=== PATIENT | female | born 1960 | race Caucasian/White ===

== ENCOUNTER 2021-07-18 08:50 | Day surgery (SDC) | payer OTHER, SELFPAY ==
[2021-07-18 09:32] VITALS: BP 122/79; PULSE 73; RESP 16; TEMP 36.5; O2SAT 100; BMI 20.6
[2021-07-18] MEDS: Lactated Ringers 1,000 ML 15 ML IV (09:49)
--- NOTE | 2021-07-18 10:06 | HP.PCM_ITS ---
History and Physical Date of Admission: 07/18/21 Date of Service: 05/29/21 MR#:[id number]: SANDRA GUSTAFSON [facility] #:[id number] Provider:Dr. Antony Fuentes DOAge/Sex: 61/F Location:[facility]:Signed Intake Intake Visit Reasons: BILAT HANDS Allergies No Known Allergies Allergy (Verified 04/12/20 10:43) Medications enalapril maleate 20 mg PO DAILY 04/19/16 [History Confirmed 05/29/21] PFS Social History (Updated 07/22/20 @ 15:43 by HOMER Taylor) Smoking Status: Light Smoker (<10/day) HPI BILAT HANDS Details: Parts of this documentation were recorded by a scribe, this documentation accurately reflects the service provided and the decisions made by me, Dr. Antony Fuentes, 05/29/21 1032. SANDRA GUSTAFSON is a 61 year old F here today for BL thumb pain over A1 sena. She states that she has had left trigger thumb injections with Dr. Magallanes the last injection was 04/2020 and she states this was helpful until about 1 month ago. She has had 3 injections into the left thumb, she has now been having pain of the right thumb in a similar area. She states that her BL thumbs stick on her. She has pain over the thumb. She does have some mild CMC joint pain as well. She states that the right thumb is worse than the left. She states that she has been using derma freeze for the pain which is a topical rub. She does also have numbness and tingling and that her 1st through 4th fingers on both hands will be numb in the mornings however she states after she shakes out her hands the numbness goes away does not wake her up at night and she does not get any symptoms during the day. Denies an EMG, denies any bracing/splinting. Ortho Exam General General: Yes no acute distress Neurologic: Yes alert and Yes oriented x3 Psychologic: Yes reasonable and appropriate Right Wrist/Hand Skin/Wound: No Swelling, No Ecchymosis, Yes nail intact and Yes capillary refill normal Right Wrist: No Durken's Test, Bhupinder's Test, Tinel's, Phalen's or tender to palpate carpometacarpal joint WRIST: Tender to palpation over the A1 sena of the thumb which is hypertrophied there is palpable triggering. She is nontender over the CMC joint negative CMC grind intact sensation light touch no atrophy noted about the thenar eminence. Left Wrist/Hand Skin/Wound: No Swelling and No Ecchymosis A1 sena trigger: Yes Left Wrist: No Durken's Test, No Tinel's, No Phalen's, No CMC Grind and No tender to palpate carpometacarpal joint WRIST: Tender to palpation over the A1 sena of the thumb which is hypertrophied there is palpable triggering. She is nontender over the CMC joint negative CMC grind intact sensation light touch no atrophy noted about the thenar eminence. Office Procedures Ortho Injections Injections Yes Trigger Finger Injection Left Details: Obtained consent for injection. Under sterile conditions, injected the patient's right trigger thumb with 1/4cc bupivacaine, 1/4cc lidocaine and 1/2cc depomedrol. The patient tolerated the injection well without any noted complication. Patient should call our office if redness develops, pain worsens or if they have any concerns. Office Meds Depo-Medrol Performing Provider: Antony Fuentes DO Administered by: Antony Fuentes DO on 05/29/21 11:44 Dose Route Admin Location Lot Number Expiration Date NDC Manuf acturer 20 mg intra-articular right trigger thumb [id number] 01/10/22 6645-5586-01 [employer]ARMAC[employer]PFIZER Supplemental Info Supplemental Info: 05/29/2021 x-ray left hand CMC joint arthritis first moderate 05/29/2021 x-ray right hand mild CMC joint arthritis 05/29/21 10:58 am EDT - Antony Fuentes Coding Level of Care Code Off vis,est,level 4 Diagnoses Trigger thumb, right thumb M65.311 Trigger thumb, left thumb M65.312 Carpal tunnel syndrome, bilateral G56.03 CPT Codes replenishment specialist.trig (12060) Assessment and Plan Assessment and Plan (1) Trigger thumb, left thumb: Status: Acute (2) Trigger thumb, right thumb: Status: Acute (3) Carpal tunnel syndrome, bilateral: Status: Acute Orders: Orders: Ortho Injections Today M65.311 Plan - Dr. Antony Fuentes, DO: Obtained X-rays of patient's BL hands. Personally reviewed x-rays. There is no obvious fracture, dislocation, or lucency noted. 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 Her greatest complaint is the triggering of the BL thumbs which is a trigger thumb. Treatment options for this are do nothing or splinting of thumb at night or A1 sena injection or A1 sena surgical release. Educated that it is not recommended to have repeated injections of the A1 sena because this has lead to risk of tendon rupture. Educated that if she has the surgery she will have stitches for 2 weeks, then will have restrictions for an additional week then she can return to activity as tolerated. She wishes to proceed with right A1 sena injection of the thumb today. Educated that she is also having carpal tunnel symptoms. Treatment options for this would include night bracing/splinting and if the numbness and tingling does not subside after a month of the night splinting then she can return and we will order an EMG for surgical intervention. She will proceed with night splinting at this time because the numbness and tingling only occurs in the morning. She will proceed with left A1 sena release in July and she will sign consent the day of surgery. Follow up as needed or sooner if pain, swelling, numbness or associated symptoms, or concerns develop. All questions answered. Patient in agreement of plan. Plan Details Other Orders: Orders: Hand Min 3 Views Today M79.645 Hand Min 3 Views Today M79.644 05/29/21 1149<Electronically signed by Antony Fuentes DO>Date Antony Fuentes DO Cosigner Signature:Date (if applicable) I have re-examined the patient. There are no clinical changes since date of exam
[2021-07-18] MEDS: Cefazolin 2 GM in 0.9% Normal Saline 100 ML IV (10:12)
[2021-07-18] MEDS: Lidocaine 1% /Epi 1:100 (20ml) 20 ML Vial (10:38)
--- NOTE | 2021-07-18 10:41 | PCM.OPRPT ---
Report of Operation Date of Procedure: 07/18/21 Description of Surgical Findings:: Preoperative diagnosis; left thumb digit trigger finger Postoperative diagnosis; same Procedure: Left first digit A1 sena release Anesthesia: General Tourniquet time; 11 minutes 250 mm Hg Complications: None Indication for procedure; This is a 61-year-old female with symptoms consistent with trigger thumb. Risks benefits and alternatives were reviewed including risks of bleeding infection nerve tendon tissue damage need for further surgery and continued pain and symptoms, hypersensitivity to scar/incision and recurrence. Procedure; The patient was met in the preoperative holding area the operative extremity was identified by both patient and physician and was marked the patient was met by anesthesia and brought back to the operating room and transferred to the operating table in the supine position. Aanesthesia was started. A well-padded tourniquet was placed on the operative upper extremity. The patient was prepped and draped in the usual sterile fashion. A timeout was called to ensure the proper patient procedure and extremity were being contemplated. Esmarch was used tourniquet was inflated. 15 blade scalpel was used to make a horizontal incision directly over the flexion crease distal to A1 sena was carried down through the skin dissection scissors were used to ensure no injury to any crossing branches of the radial digital nerve there was a branch identified and rationale retractors were used to protect the digital nerves and visualize the A1 sena under direct visualization a deep blade scalpel was used to release the A1 sena. The wound was thoroughly irrigated and closed with 4-0 nylon vertical mattress edges. 0.25 percent Marcaine plain was injected into the incisional area dressing was applied in the form of Xeroform 4 x 4 web roll and an Michael wrap. Patient tolerated the procedure well was brought back to the PACU in stable condition.
--- NOTE | 2021-07-18 10:42 | PCM.DC ---
Discharge Instructions Activity Additional Activity Instructions:: Ice and elevate operative extremity next 72 hours. Keep dressing on clean and dry for 48 hours then may remove and allow warm soapy water to rinse over incision but do not submerge until sutures are out. Then apply bandaid over incision and change daily. encourage finger range of motion. Not lift more than 1/2 pound. Minimize narcotic use only as needed and directed, may use OTC NSAID and Tylenol to supplement/substitute for pain control. Follow Up Care Please Follow Up With: Antony Fuentes DO When: 2 weeks Test Results: Test results from this visit will be discussed in further detail at your follow-up appointment, if applicable. Discharge Plan Admission Attending Provider: Antony Fuentes Primary Care Provider: Babatunde Cunningham Discharge Orders/Prescriptions Prescriptions: New oxycodone 5 mg tablet 5 mg PO Q4H PRN (Reason: pain) 2 Days Qty: 10 RF: 0 No Action enalapril maleate 20 MG tablet 20 mg PO DAILY RF: 0 aspirin [Aspir-81] 81 mg Tablet,Delayed Release (Dr/Ec) 81 mg PO DAILY RF: 0 ascorbic acid (vitamin C) [Vitamin C] 500 mg Tablet 500 mg PO DAILY RF: 0 magnesium 250 mg Tablet 250 mg PO DAILY RF: 0 biotin 500 mcg Capsule 1 mg PO DAILY RF: 0 Cbd Oil 1 drp PO/SL DAILY RF: 0 vitamin E 200 unit Tablet 200 unit PO DAILY RF: 0 Referrals / Follow Up: Babatunde Cunningham MD [Primary Care Provider] - Disposition Disposition (needs filled in before D/C Order can be placed): Home, Self Care
[2021-07-18 10:55] VITALS: BP 122/79; BP 74/39; PULSE 81; RESP 16; TEMP 36.7; O2SAT 100
[2021-07-18 11:00] VITALS: BP 122/79; BP 86/54; PULSE 86; RESP 16; O2SAT 100
[2021-07-18 11:15] VITALS: BP 122/79; BP 98/55; PULSE 72; RESP 16; O2SAT 97
[2021-07-18] MEDS: Lactated Ringers 1,000 ML 100 ML IV (11:26)
[2021-07-18 11:30] VITALS: BP 122/79; BP 94/61; PULSE 73; RESP 16; TEMP 37; O2SAT 99
[2021-07-18 12:13] VITALS: BP 122/79
== END 2021-07-18 12:29 | disposition home or self-care (01) ==
LOC: SDC 08:57 → AC 08:58
PROVIDERS: PCP Family Medicine; Referring Provider Orthopaedic Surgery; Visit Provider Orthopaedic Surgery
PROC: (CPT 26055; principal; 2021-07-18 10:20)
DX: M65.312 Trigger thumb, left thumb (principal); G56.03 Carpal tunnel syndrome, bilateral upper limbs; M65.311 Trigger thumb, right thumb; F17.200 Nicotine dependence, unspecified, uncomplicated; I10 Essential (primary) hypertension; M19.90 Unspecified osteoarthritis, unspecified site; Z79.899 Other long term (current) drug therapy
CPT/HCPCS: 01810; 26055; J7120; J2405

== ENCOUNTER 2021-11-21 05:52 | Day surgery (SDC) | payer OTHER, SELFPAY ==
[2021-11-21] VITALS (7 sets, daily range): BP systolic 75–109; BP diastolic 49–67; PULSE 58–66; RESP 16–18; TEMP 36.2–37.3; O2SAT 99–100; BMI 20.9
[2021-11-21] MEDS: Lactated Ringers 1,000 ML 15 ML IV (06:35)
--- NOTE | 2021-11-21 07:15 | HP.PCM_ITS ---
History and Physical Date of Admission: 11/21/21 Date of Service: 10/30/21 MR#:[id number]: Arnold GUSTAFSON #:[id number] Provider:Dr. Antony Fuentes DOAge/Sex: 61/F Location:[facility] [place]:Signed Intake Intake Visit Reasons: Right thumb Is patient in pain?: Yes Allergies No Known Allergies Allergy (Verified 10/30/21 13:28) Medications enalapril maleate 20 mg PO DAILY 04/19/16 [History Confirmed 10/30/21] Cbd Oil 1 drp PO/SL DAILY 07/11/21 [History Confirmed 10/30/21] ascorbic acid (vitamin C) [Vitamin C] 500 mg PO DAILY 07/11/21 [History Confirmed 10/30/21] biotin 1 mg PO DAILY 07/11/21 [History Confirmed 10/30/21] magnesium 250 mg PO DAILY 07/11/21 [History Confirmed 10/30/21] vitamin E 200 unit PO DAILY 07/11/21 [History Confirmed 10/30/21] [facility] Medical History (Updated 08/01/21 @ 10:37 by Wilber CORONEL PA) Anemia Arthritis Back pain Blackout Dietary restriction Former smoker Heartburn History of trigger finger Hypertension Injury of back Injury of head and neck Leg cramps Post-menopausal Surgical History (Updated 07/11/21 @ 10:29 by Becky Gonzalez) History of Hx of decompressive lumbar laminectomy Social History (Updated 07/22/20 @ 15:43 by Wilber CORONEL PA) Smoking Status: Former smoker HPI Right thumb Details: Parts of this documentation were recorded by a scribe, this documentation accurately reflects the service provided and the decisions made by me, Dr. Antony Fuentes, 10/30/21 0757. SANDRA GUSTAFSON is a 61 year old F here today for right thumb. Patient states that she is having locking of her right thumb and she has pain into her thenar area. She has swelling into her MP joint of her thumb. She had an injection into her A1 sena in 05/2021 which was helpful for about 2 months. She states that she has been wearing a splint at night and doesnt notice improvement. Patient denies any numbness or tingling. She has been using lidoderm patches which are helpful. Patient takes aleve for pain if needed. Ortho Exam General General: Yes no acute distress Neurologic: Yes alert Psychologic: Yes reasonable and appropriate Right Wrist/Hand Skin/Wound: Yes CDI, No Swelling and No Ecchymosis WRIST: palpable triggering. ttp A1 sena Left Wrist/Hand Skin/Wound: No Swelling and No Ecchymosis Supplemental Info 05/29/21 Right hand : Osteopenia with diffuse osteoarthritic changes. No acute abnormality, chondrocalcinosis, erosive changes or periostitis. Coding Level of Care Code Off vis,est,level 3 Diagnoses Trigger thumb, right thumb M65.311 Assessment and Plan Assessment and Plan (1) Trigger thumb, right thumb: Status: Acute Plan - Dr. Antony Fuentes DO: Spoke with the patient about her options- repeat steroid injection or release. Explained that if she wants to proceed with a release in November, she should not get an injection today. Reviewed the pre-operative plans with the patient. Risks and benefits of the procedure were fully explained, including but not limited to infection, neurovascular injury, continued pain, arthritis, stiffness, need for further surgery, re-injury, DVT, PE, general risks of anesthesia, and loss of limb or life. The patient understands all the risks and does wish to proceed with written consent. She should not take ibuprofen or anti-inflammatories 7 days prior to surgery. She wanted to proceed with surgery on 11/21/21 Follow up for 2 week post op or sooner if pain, swelling, numbness or associated symptoms, or concerns develop. All questions answered. Patient in agreement of plan. 10/30/21 1400<Electronically signed by Antony Fuentes DO>Date Antony Fuentes DO I have re-examined the patient. There are no clinical changes since date of exam
--- NOTE | 2021-11-21 07:17 | EX.PCM.DISCH ---
Discharge Instructions Activity Additional Activity Instructions:: Ice and elevate operative extremity next 72 hours. Keep dressing on clean and dry for 48 hours then may remove and allow warm soapy water to rinse over incision but do not submerge until sutures are out. Then apply bandaid over incision and change daily. encourage finger range of motion. Not lift more than 1/2 pound. Minimize narcotic use only as needed and directed, may use OTC NSAID and Tylenol to supplement/substitute for pain control. Follow Up Care Test Results: Test results from this visit will be discussed in further detail at your follow-up appointment, if applicable. Discharge Plan Admission Attending Provider: Antony Fuentes Primary Care Provider: Babatunde Cunningham Discharge Orders/Prescriptions Prescriptions: New oxycodone 5 mg tablet 2.5 - 5 mg PO Q4H PRN (Reason: pain) 3 Days Qty: 7 RF: 0 No Action enalapril maleate 20 MG tablet 20 mg PO DAILY RF: 0 ascorbic acid (vitamin C) [Vitamin C] 500 mg Tablet 500 mg PO DAILY RF: 0 magnesium 250 mg Tablet 250 mg PO DAILY RF: 0 biotin 500 mcg Capsule 1 mg PO DAILY RF: 0 Cbd Oil 1 drp PO/SL DAILY RF: 0 vitamin E 200 unit Tablet 200 unit PO DAILY RF: 0 Referrals / Follow Up: Babatunde Cunningham MD [Primary Care Provider] - Disposition Disposition (needs filled in before D/C Order can be placed): Home, Self Care
[2021-11-21] MEDS: Cefazolin 2 GM in 0.9% Normal Saline 100 ML IV (07:30)
[2021-11-21] MEDS: Lidocaine 1% /Epi 1:100 (20ml) 20 ML Vial (07:55)
--- NOTE | 2021-11-21 08:07 | PCM.OPRPT ---
Report of Operation Date of Procedure: 11/21/21 Description of Surgical Findings:: Preoperative diagnosis; right thumb digit trigger finger Postoperative diagnosis; same Procedure: Right first digit A1 sena release Anesthesia: General Tourniquet time; 10 minutes 250 mm Hg Complications: None Indication for procedure; This is a 61-year-old female with symptoms consistent with trigger thumb. Risks benefits and alternatives were reviewed including risks of bleeding infection nerve tendon tissue damage need for further surgery and continued pain and symptoms, hypersensitivity to scar/incision and recurrence. Procedure; The patient was met in the preoperative holding area the operative extremity was identified by both patient and physician and was marked the patient was met by anesthesia and brought back to the operating room and transferred to the operating table in the supine position. Aanesthesia was started. A well-padded tourniquet was placed on the operative upper extremity. The patient was prepped and draped in the usual sterile fashion. A timeout was called to ensure the proper patient procedure and extremity were being contemplated. Esmarch was used tourniquet was inflated. 15 blade scalpel was used to make a horizontal incision directly over the flexion crease distal to A1 sena was carried down through the skin dissection scissors were used to ensure no injury to any crossing branches of the radial digital nerve there was a branch identified and rationale retractors were used to protect the digital nerves and visualize the A1 sena under direct visualization a deep blade scalpel was used to release the A1 sena. The wound was thoroughly irrigated and closed with 4-0 nylon vertical mattress edges. 0.25 percent Marcaine plain was injected into the incisional area dressing was applied in the form of Xeroform 4 x 4 web roll and an Michael wrap. Patient tolerated the procedure well was brought back to the PACU in stable condition.
== END 2021-11-21 23:59 | disposition home or self-care (01) ==
LOC: SDC 05:58 → AC 05:58
PROVIDERS: PCP Family Medicine; Referring Provider Orthopaedic Surgery; Visit Provider Orthopaedic Surgery
PROC: (CPT 26055; principal; 2021-11-21 07:20)
DX: M65.311 Trigger thumb, right thumb (principal); Z87.891 Personal history of nicotine dependence; I10 Essential (primary) hypertension; M19.90 Unspecified osteoarthritis, unspecified site; Z86.16 Personal history of COVID-19
CPT/HCPCS: 26055; 01810; 87426; J7120; J2405